=== PATIENT | female | born 1990 | race Caucasian/White ===

== ENCOUNTER 2023-08-22 23:04 | Emergency (ER) | payer MEDICAID, SELFPAY ==
[2023-08-22 23:10] VITALS: BP 145/91; PULSE 89; RESP 16; TEMP 36.6; O2SAT 100; BMI 22.8
[2023-08-23 00:18] VITALS: BP 139/93; PULSE 87; RESP 15; O2SAT 100
--- NOTE | 2023-08-23 00:58 | ED_ITS ---
HPI - Dental/Oral General: Chief complaint: Dental/Oral Stated complaint: tooth pain Time Seen by Provider: 08/23/23 00:21 History of Present Illness: 32-year-old female presents emerged part with complaints of dental pain to the left back molar she states has been ongoing for the previous 2 weeks. She states the pain is currently a 7 out of 10 aching. She states she was on antibiotics and finished a course from her dentist 4 weeks ago. She states she has continued to have pain since that time. She states she is scheduled to have the tooth pulled but the pain is intolerable at present. She denies difficulty with speech or swallowing. She denies neck pain or stiffness. She denies fevers chills or night sweats. Review of Systems General: Reports: 10 or more systems reviewed and unremarkable except in HPI and below ENMT: Reports: dental pain [facility] ED Female Reproductive History: Date of last menstrual period: 08/08/23 Physical Exam Narrative: EXAM NARRATIVE: Constitutional: the patient appears well nourished and of normal development. Vital signs as documented. No acute distress at present. Alert and oriented-to person, place, time and situation. Head, eyes, ears, nose, mouth, throat: Normocephalic, atraumatic. Pupils-equal, round, reactive to light. No scleral icterus. Normal-appearing external ears. Normal appearing nasal turbinates, no drainage. No obvious oral lesions, posterior oropharynx without erythema or exudates. Poor dentition and dental caries gingivitis noted to the left lower jaw area. Neck: Supple, trachea is midline, no lymphadenopathy, . Lungs: clear to auscultation to all lung figueredo. Symmetrical rise and fall of chest, no obvious signs of increased work of breathing at present. Cardiac: Regular rate and rhythm, positive S1, S2. No murmurs, rubs or gallops that I can appreciate Abdomen: Soft, non-tender to palpation, normal active bowel sounds to all quadrants. Extremities: 2+ pulses in the upper extremities that are equal bilaterally, 2+ pulses in the lower extremities that are equal bilaterally. Non-edematous. Moves all extremities well, sensation to all extremities are noted. Skin: Warm, dry, intact. Course Vital Signs: Vital signs: Vital Signs Temperature 97.9 F 08/22/23 23:10 Pulse Rate 90 08/23/23 02:09 Respiratory Rate 15 08/23/23 00:18 Blood Pressure 107/66 08/23/23 02:09 Pulse Oximetry 99 08/23/23 02:09 Oxygen Delivery Me thod Room Air 08/23/23 00:18 MDM - Dental/Oral Medical Decision Making Physical exam completed and documented I did provide the patient topical viscous lidocaine orally and Toradol for her pain. I will provide her antibiotic prescription as well as naproxen for her dental pain. No radiology studies performed this visit Discharge Plan Discharge Patient Disposition: Home Clinical Impression: Dental caries, Toothache Condition: Stable Prescriptions: New naproxen 500 mg tablet 500 mg PO Q12H PRN (Reason: pain) Qty: 20 0RF amoxicillin-pot clavulanate 875-125 mg tablet 1 tab PO BID Qty: 14 0RF Discharge Orders: Discharge ED (Routine); Ordered 08/23/23 Ordered By: James Emmanuel Discharge Diet: Usual diet Discharge Activity: Resume usual activity Patient Instructions: Opioid Safety, Pain Management Activity Restrictions/Additional Instructions: Follow-up with your dental provider as planned. Coding Level of Care Code ED Molded Goods Inspector Trimmer for Gina Borges
[2023-08-23] MEDS: ketorolac 60 mg/2 mL INJ IM (01:36)
[2023-08-23] MEDS: lidocaine 2% viscous 15 mL UDC 10 ML MUCOUS MEM (01:36)
[2023-08-23] MEDS: lidocaine 2% viscous 15 ML, aluminum-mag hydrox-simethicon 30 ML, sucralfate oral liq 1 GM PO (02:05)
[2023-08-23 02:09] VITALS: BP 107/66; PULSE 90; O2SAT 99
== END 2023-08-23 02:10 | disposition home or self-care (01) ==
PROVIDERS: Emergency Provider Internal Medicine
DX: K02.9 Dental caries, unspecified (principal); K08.89 Other specified disorders of teeth and supporting structures
CPT/HCPCS: 96372; 99284; J1885